=== PATIENT | male | born 1990 | race American Indian/Alaskan Native ===

== ENCOUNTER 2018-07-03 10:58 | Emergency (ER) | payer OTHER ==
--- NOTE | 2018-07-03 13:36 | Emergency Department Report ---
<JIMMY RIVER - Last Filed: 07/03/18 17:52> ED General Adult HPI - General Chief complaint: Rectal Pain Stated complaint: CONSTIPATED 7DAYS/PAIN Time Seen by Provider: 07/03/18 13:15 Source: patient Mode of arrival: Ambulatory Limitations: No Limitations - History of Present Illness Initial comments: Pt is a 27 yo male who presents for constipation that began a week ago. He states he last had a small BM two days ago. He states when he had a BM two days ago there was bright red blood present. The patient states he has abdominal cramping. He denies any N/V or fever. he denies any purulent drainage, penile discharge, or urinary sx. He states he has a hx of hemorrhoids but has not been using anything. The patient is HIV positive and is on antivirals, he states he had his levels checked last month. He states he had a rectal fistula surgery in 2012. - Related Data Previous Rx's Medication Instructions Recorded Last Taken Type Amoxicillin [Trimox CAP] 500 mg PO Q8H #30 capsule 11/05/15 Unknown Rx Cetirizine HCl [ZyrTEC] 10 mg PO DAILY #14 capsule 11/05/15 Unknown Rx Doxycycline Monohydrate 100 mg PO BID 10 Days #20 capsule 07/03/18 Unknown Rx [Doxycycline Monohydrate CAP] Lidocaine [Lidocaine OINT] 30 gm TP TID #1 tube 07/03/18 Unknown Rx Allergies Allergy/AdvReac Type Severity Reaction Status Date / Time No Known Allergies Allergy Unverified 11/05/15 10:50 ED Review of Systems Comment: All other systems reviewed and negative ED Past Medical Hx - Past Medical History Previous Medical History?: No - Surgical History Past Surgical History?: No - Social History Smoking Status: Never Smoker Substance Use Type: None - Medications Home Medications: Home Medications Medication Instructions Recorded Confirmed Last Taken Type Amoxicillin [Trimox CAP] 500 mg PO Q8H #30 capsule 11/05/15 Unknown Rx Cetirizine HCl [ZyrTEC] 10 mg PO DAILY #14 capsule 11/05/15 Unknown Rx Doxycycline Monohydrate 100 mg PO BID 10 Days #20 capsule 07/03/18 Unknown Rx [Doxycycline Monohydrate CAP] Lidocaine [Lidocaine OINT] 30 gm TP TID #1 tube 07/03/18 Unknown Rx ED Physical Exam - General Limitations: No Limitations General appearance: alert, in no apparent distress - Head Head exam: Present: atraumatic, normocephalic - Eye Eye exam: Present: normal appearance, PERRL - ENT ENT exam: Present: mucous membranes moist - Respiratory Respiratory exam: Present: normal lung sounds bilaterally. Absent: respiratory distress, wheezes, rales, rhonchi, stridor, chest wall tenderness, accessory muscle use, decreased breath sounds, prolonged expiratory - Cardiovascular Cardiovascular Exam: Present: regular rate, normal rhythm, normal heart sounds. Absent: systolic murmur, diastolic murmur, rubs, gallop - GI/Abdominal GI/Abdominal exam: Present: soft, tenderness (LLQ), normal bowel sounds. Absent: distended, guarding, rebound, rigid - Rectal Rectal exam: Present: normal rectal tone, other (tile professional: MARINE Grullon, small amount of brown colored stool, no gross blood, no obvious external hemorrhoids, no obvious internal hemorrhoids) - Neurological Exam Neurological exam: Present: alert, oriented X3 - Psychiatric Psychiatric exam: Present: normal affect, normal mood - Skin Skin exam: Present: warm, dry, intact ED Course - Reevaluation(s) Reevaluation #1: 07/03/18 17:53 pt signed out to Huan Worrell NP pending CT abd/pelvis ED Medical Decision Making - Lab Data Result diagrams: 07/03/18 14:32 07/03/18 15:57 ED Disposition Clinical Impression: Proctitis Disposition: DC-01 TO HOME OR SELFCARE Condition: Stable Instructions: Sexually Transmitted Diseases (ED), Rectal Bleeding (ED) Prescriptions: Doxycycline Monohydrate [Doxycycline Monohydrate CAP] 100 mg PO BID 10 Days #20 capsule Lidocaine [Lidocaine OINT] 30 gm TP TID #1 tube Referrals: PRISCILLA TIJERINA MD [Staff Physician] - 3-5 Days Forms: Work/School Release Form(ED) <ZANE WORRELL - Last Filed: 07/03/18 20:43> ED Review of Systems ROS: Stated complaint: CONSTIPATED 7DAYS/PAIN Other details as noted in HPI ED Course Vital Signs 07/03/18 07/03/18 07/03/18 11:16 16:08 16:10 Temperature 98 F 97.7 F Pulse Rate 105 H 85 Respiratory 18 15 15 Rate Blood Pressure 121/81 Blood Pressure 121/78 [Right] O2 Sat by Pulse 98 100 Oximetry ED Medical Decision Making - Lab Data Result diagrams: 07/03/18 14:32 07/03/18 15:57 - Radiology Data Radiology results: report reviewed, image reviewed ct abd pelvic: mild rectum thickening, likley proctitis - Medical Decision Making This is likely Proctitis patient does have anal sex, plan to Rocephin azithromycin and ED disease however prescription for doxycycline by mouth twice a day for 10 days as scheduled tomorrow patient currently tolerating by mouth intake there is no nausea vomiting no melena no fever chills pt verbalized agreement and understanding of discharge plan Critical care attestation.: If time is entered above; I have spent that time in minutes in the direct care of this critically ill patient, excluding procedure time. ED Disposition Is pt being admited?: No Does the pt Need Aspirin: No Time of Disposition: 20:43
--- NOTE | 2018-07-03 14:12 | XRay Report ---
PROCEDURE: XR ABDOMEN 2V TECHNIQUE: KUB and erect abdomen HISTORY: constipation COMPARISONS: None FINDINGS: Lung bases are clear. No free air Gas and stool throughout the colon. Nonobstructive bowel gas pattern. No substantial retained stool. No air-fluid level. No organomegaly. No abnormal calcification. No acute bony abnormality IMPRESSION: No free air Nonobstructive bowel gas pattern No significant retained stool. This document is electronically signed by Ihsan Gilmore MD., Jul 03 2018 02:10:33 PM ET
[2018-07-03 14:47] LABS: Hematocrit 41.6 % (35.5-45.6); Hemoglobin 14.8 gm/dl (11.8-15.2)
[2018-07-03 16:27] LABS: Alanine Aminotransferase 31 units/L (7-56); Albumin 4.6 g/dL (3.9-5); BUN/Creatinine Ratio 8; Blood Urea Nitrogen 10 mg/dL (9-20); Calcium 9.9 mg/dL (8.4-10.2); Hemolysis Index 8
[2018-07-03 16:38] LABS: Bilirubin,Urine NEG (Negative); Blood,Urine NEG (Negative); Color,Urine Yellow (Yellow); Mucus,Urine FEW /HPF; Protein,Urine <15 mg/dL mg/dL (Negative); Urobilinogen,Urine < 2.0 mg/dL (<2.0); WBC,Urine < 1.0 /HPF (0.0-6.0)
--- NOTE | 2018-07-03 20:17 | Cat Scan Report ---
PROCEDURE: CT ABDOMEN PELVIS W CON TECHNIQUE: Computerized axial tomography of the abdomen and pelvis was performed after the IV inject ion of iodinated nonionic contrast. HISTORY: rectal pain, LLQ pain COMPARISONS: None . FINDINGS: Lower Lung leavitt: No focal abnormalities seen. Upper Abdomen: The liver, the gallbladder, the adrenal glands, the pancreas and spleen are unremarka ble. Kidneys, Ureters and Urinary bladder: No abnormalities are identified. Retroperitoneum: Abdominal aorta appears normal. Nonspecific subcentimeter lymph nodes are seen in the retroperitoneum. No pathologically enlarged ly mph nodes are identified. Bowel: The rectum appear diffusely thickened.. The sigmoid colon is unremarkable. The remainder the colon is unremarkable. No evidence of bowel obstruction. There is no ascites or free intraperitoneal gas. Normal-appearing appendix seen right lower quadrant. There are small nodular densities to the left of the rectum measuring up to 1.2 x 0.8 cm. These appea r to represent several mildly enlarged lymph nodes. Reproductive organs: Prostate gland does not debby ear to be significantly enlarged. Other: No acute bone abnormalities are identified. IMPRESSION: Abnormal wall thickening visualized in the rectum. There is mild adenopathy to the left of the rectum . Appearance suggest a nonspecific enteritis. Consider infectious etiology or inflammatory bowel dise ase. Malignancy felt to be less likely. No other abnormalities are seen. This document is electronically signed by Anibal Monzon MD., Jul 03 2018 08:15:37 PM ET
[2018-07-03] MEDS ORDERED: ZITHROMAX PO ONE (20:33)
[2018-07-03] MEDS ORDERED: ROCEPHIN IM ONE (20:33)
[2018-07-03] MEDS ORDERED: XYLOCAINE 1% MPF 5 mL INFILTRATI ONE (20:33)
[2018-07-03 21:19] VITALS: BP 113/70
== END 2018-07-03 21:59 | disposition home or self-care (01) ==
LOC: ED 10:58
DX: K62.89 Other specified diseases of anus and rectum (principal)
CPT/HCPCS: 36415; 74019; 74177; 80053; 81001; 82271; 83690; 85014; 85018; 96372; 99284; J0696; Q9967